=== PATIENT | male | born 1950 | race Caucasian/White ===

== ENCOUNTER 2020-05-09 08:57 | Outpatient (CLI) | payer MEDICARE, BC | END 2020-05-09 08:58 | disposition home or self-care (01) | LOC: DTY/OP 08:57 | PROVIDERS: ATTEND Family Medicine | DX: E11.9 Type 2 diabetes mellitus without complications (principal) | CPT/HCPCS: 97802 ==

== ENCOUNTER 2020-05-10 07:21 | Outpatient (CLI) | payer MEDICARE, BC, OTHER ==
[2020-05-10 11:23] LABS: Hemoglobin 15.8 g/dL (14.0-18.0); Mean Corpuscular HGB CONC 33.2 g/dL (32.0-36.0); Mean Corpuscular Hemoglobin 30.9 pg (27.0-31.0); Mean Corpuscular Volume 93.2 fL (78.0-98.0); Mean Platelet Volume 8.3 fL (7.4-10.4); Platelet Count 251 thou/uL (130-400); RBC Distribution Width 12.8 % (11.5-14.5); Red Blood Cell (RBC) Count 5.11 mill/uL (4.70-6.10); White Blood Cell (WBC) Count 3.8 thou/uL (4.8-10.8)
[2020-05-10 11:27] LABS: INR-International Normal Ratio 0.9; PTT 27.9 sec (22.9-36.1); Prothrombin Time 12.6 sec (12.0-14.7)
[2020-05-10 12:23] LABS: Anion Gap 14 mmol/L (10-20); BUN (Urea Nitrogen) 16 mg/dL (8.4-25.7); Calc. Creatinine Clearance 0 mL/min (70-130); Calcium 8.9 mg/dL (7.8-10.44); Carbon Dioxide 23 mmol/L (23-31); Chloride 105 mmol/L (98-107); Estimated GFR-MDRD 83; Glucose 279 mg/dL (80-115); Potassium 4.1 mmol/L (3.5-5.1); Sodium 138 mmol/L (136-145)
[2020-05-10 12:42] LABS: Bacteria/HPF None Seen HPF (None Seen); Bilirubin Negative (Negative); Blood, Urine Negative (Negative); Clarity Clear (Clear); Glucose, Urine (Dipstick) Greater than 1000 mg/dL (Negative); Ketone, Urine Negative (Negative); Leukocyte Negative Leu/uL (Negative); Nitrite Negative (Negative); Protein, Urine (Dipstick) Negative (Neg-Trace); RBC/HPF 0-3 HPF (0-3); Specific Gravity, Urine 1.009 (1.002-1.036); Squamous Epithelial None Seen HPF (0-3); Urobilinogen Normal mg/dL (Less than 2); pH, Urine 5.5 (5.0-9.0)
[2020-05-10 17:56] LABS: SARS-CoV-2 MS2 Positive; SARS-CoV-2 N Gene Negative; SARS-CoV-2 S Gene Negative; SARS-CoV-2 by NAA Not Detected (NotDetected); SARS-CoV-2 orf1ab Negative
--- NOTE | 2020-05-11 07:04 | EKG ---
Test Reason : Blood Pressure : / mmHG Vent. Rate : 056 BPM Atrial Rate : 056 BPM P-R Int : 142 ms QRS Dur : 106 ms QT Int : 436 ms P-R-T Axes : 063 073 081 degrees QTc Int : 420 ms Sinus bradycardia Septal infarct , age undetermined Abnormal ECG Confirmed by DR. Tyler RIOS ([id number]) on 05/11/2020 7:03:53 AM Referred By: BLAYNE Confirmed By:DR. Tyler RIOS
== END 2020-05-10 07:22 | disposition home or self-care (01) ==
LOC: LABBT 07:21
PROVIDERS: ATTEND Urology
DX: Z01.818 Encounter for other preprocedural examination (principal); Z20.828 Contact with and (suspected) exposure to other viral communicable diseases; N40.1 Benign prostatic hyperplasia with lower urinary tract symptoms; R39.12 Poor urinary stream; N39.41 Urge incontinence
CPT/HCPCS: 80048; 81001; 85027; 85610; 85730; 87086; 93005; U0003; 87635; 93010

== ENCOUNTER 2020-05-13 06:25 | Day surgery (SDC) | payer MEDICARE, BC ==
[2020-05-10 13:56] VITALS: BMI 27.3
[2020-05-13] MEDS ORDERED: B & O ONE (07:49)
[2020-05-13] MEDS ORDERED: Levofloxacin 500 mg/D5W 100 ml Premix Bag ONE (08:27)
--- NOTE | 2020-05-13 09:45 | OP ---
DATE OF PROCEDURE: 05/13/2020 SERVICE: Urology. PREOPERATIVE DIAGNOSIS: Benign prostatic hypertrophy with obstruction. POSTOPERATIVE DIAGNOSIS: Benign prostatic hypertrophy with obstruction. PROCEDURE PERFORMED: UroLift with 7 implants. INDICATIONS FOR PROCEDURE: Mr. Addison is a 69-year-old white male with BPH and urinary complaints. He does not want to be on medication. He wished to undergo UroLift procedure. We discussed risks and benefits, and he has agreed to proceed forward. DESCRIPTION OF PROCEDURE: After identification of armband and verification of consent, the patient was brought back to the operating room, where he underwent total intravenous anesthesia. He was then placed in a dorsal lithotomy position and prepped and draped in usual sterile fashion. After appropriate time-out, a lubricated 21-Congolese rigid cystoscope was introduced per urethra into the bladder. The visual obturator was switched out for the UroLift implant device. The initial implant was placed at the patient's left proximal prostate near the base away from the bladder neck. Lateral compression was achieved in anterior left. The safety was released and then the blue trigger fired to deploy the Nitinol needle. Tension was set with a machado trigger and deployment of the capsular tab. The UroLift device was then advanced forward until the white line could be seen in the keyhole and then the back blue release trigger fired to deploy the urethral end piece. This was then repeated again on the patient's right base of the prostate as well as the left apex and right apex of the prostate. There still appeared to be a bulge on the patient's left lateral prostate, so an additional implant was placed there. At this point, the prostatic channel did appear to be wide open. However, there was significant drooping of the anterior prostate into the prostatic channel. I elected to place anterior implants on the left and right approximately at the mid to base prostate. This resulted in a very nice channel being created from the bladder neck to the verumontanum. Satisfied with the results, the UroLift was removed and an 18-Congolese Marquez catheter was placed with ease into the bladder. 10 mL of sterile water was placed into the balloon. The patient was given B and O suppository, taken out of positioning, awakened, and taken to Day Stay for recovery in stable condition. COMPLICATIONS: None. ESTIMATED BLOOD LOSS: Minimal. RETAINED TUBES AND DRAINS: 18-Congolese Marquez catheter. SPECIMENS: None. IMPLANTS USED: Seven. DISPOSITION: The patient will undergo a void trial. We will plan to discharge him home. Follow up will be approximately 1 to 2 weeks for postop check. Job ID: [id number]
[2020-05-13] MEDS ORDERED: Phenazopyridine HCl 100 MG TAB ONE (10:44)
[2020-05-13] MEDS ORDERED: Oxybutynin 5 MG TAB ONE (10:44)
[2020-05-13] MEDS ORDERED: PROPOFOL 200 MG/20 ML VIAL ONE (10:49)
== END 2020-05-13 11:40 | disposition home or self-care (01) ==
LOC: SDC 06:25
PROVIDERS: ATTEND Urology
PROC: 0T7D8DZ Dilation of Urethra with Intraluminal Device, Via Natural or Artificial Opening Endoscopic (ICD-10-PCS; principal; 2020-05-13)
DX: N40.1 Benign prostatic hyperplasia with lower urinary tract symptoms (principal); N13.8 Other obstructive and reflux uropathy; N39.41 Urge incontinence; R39.12 Poor urinary stream; E11.9 Type 2 diabetes mellitus without complications; J43.9 Emphysema, unspecified; E03.9 Hypothyroidism, unspecified; E78.5 Hyperlipidemia, unspecified; I10 Essential (primary) hypertension; K21.9 Gastro-esophageal reflux disease without esophagitis; Z87.891 Personal history of nicotine dependence; Z79.84 Long term (current) use of oral hypoglycemic drugs; Z79.899 Other long term (current) drug therapy
CPT/HCPCS: 82962; C1889; C9740; 36416; J1956; J2704

== ENCOUNTER 2020-09-12 08:05 | Outpatient (CLI) | payer MEDICARE, BC ==
--- NOTE | 2020-09-12 09:19 | CT ---
EXAM: CT Abdomen W WO Con PROVIDED CLINICAL HISTORY: Renal function tests abnormal. Patient with prior CT pulmonary lung scan suggesting appearance of the left kidney. COMPARISON: CT pulmonary lung scan on 04/19/[address] abdomen on 01/28/2006. FINDINGS: On previous CT pulmonary lung scan, there was a lobulated appearance of the anterolateral aspect supe rior pole left kidney, but this is likely due to an area of lobulation. There is no discrete mass seen in this region. Similar finding was seen on CT abdomen on 01/28/2006. No enhancing renal mas s is visualized. A 0.9 cm hypodense lesion which does not demonstrate enhancement is seen within the midportion right kidney measuring 0.9 cm. Subcentimeter too small to characterize hypodense lesio n is seen in the midportion left kidney. Single 2 mm nonobstructing calculus is seen in the superior pole left kidney and inferior pole right kidney. Multiple calcifications are seen throughout the pancreas also seen on study in 2006 likely sequela of pancreatitis. A 1.1 cm low-density focus is seen in the tail the pancreas which is difficult to further characterize. There is bibasilar atelectasis with calcified granuloma at the right lung base. A subcentimeter too small to characterize low-density focus is seen in lateral segment left hepatic l obe as well as in the posterior segment right hepatic lobe. Lesion in the right left hepatic lobe was seen on prior exam in 2005. Postcholecystectomy changes are present. The spleen and bilateral adrenal glands demonstrate a normal CT appearance. Dense vascular calcification are present in the abdominal aorta and iliac arteries. Colonic diverticulosis is present with small moderate inferolateral seen throughout the colon. Small hiatal hernia is present. Loops of small bowel are normal in caliber. IMPRESSION: 1. Lobulated appearance of the anterolateral aspect superior pole left kidney with a similar appearan ce to a prior study on 01/28/2006. This is likely due to normal lobulation. There is no discrete mass appreciated. 2. Right renal cyst. 3. Incidental pancreatic tail hypodense lesion measuring 1.1 cm. Follow-up evaluation in 6 months to one year is recommended. 4. Nonobstructing bilateral renal calculi. 5. Multiple calcifications seen throughout the pancreas likely sequela of prior pancreatitis. 6. Postcholecystectomy changes. 7. Colonic diverticulosis. 8. Too small to characterize hypodense lesion in each lobe of the liver.
[2020-09-12] MEDS ORDERED: Iopamidol-370 76% 500 ML 1 ML ONE (10:00)
== END 2020-09-12 08:06 | disposition home or self-care (01) ==
LOC: BICCT 08:05
PROVIDERS: ATTEND Family Medicine
DX: R94.4 Abnormal results of kidney function studies (principal); Q63.8 Other specified congenital malformations of kidney; N28.1 Cyst of kidney, acquired; N20.0 Calculus of kidney; K86.89 Other specified diseases of pancreas; K57.30 Diverticulosis of large intestine without perforation or abscess without bleeding; Z90.49 Acquired absence of other specified parts of digestive tract
CPT/HCPCS: 74170; Q9967

== ENCOUNTER 2021-03-14 12:21 | Outpatient (CLI) | payer MEDICARE, BC | END 2021-03-14 12:22 | disposition home or self-care (01) | LOC: BICCT 12:21 | PROVIDERS: ATTEND Family Medicine | DX: R93.5 Abnormal findings on diagnostic imaging of other abdominal regions, including retroperitoneum (principal); K86.89 Other specified diseases of pancreas | CPT/HCPCS: 74160 ==

== ENCOUNTER 2021-05-30 12:42 | Outpatient (CLI) | payer MEDICARE, BC | END 2021-05-30 12:43 | disposition home or self-care (01) | LOC: BICCT 12:42 | PROVIDERS: ATTEND Family Medicine | DX: Z12.2 Encounter for screening for malignant neoplasm of respiratory organs (principal); Z87.891 Personal history of nicotine dependence; R91.8 Other nonspecific abnormal finding of lung field | CPT/HCPCS: 71271 ==

== ENCOUNTER 2021-06-16 10:42 | Outpatient (CLI) | payer MEDICARE, BC ==
[~2021-06-16 10:42] MED LIST: Iopamidol-370 76% 500 ML 1 ML ONE
[2021-06-19 10:15] LABS: Estimated GFR-MDRD - POC Greater than 90
== END 2021-06-16 10:43 | disposition home or self-care (01) ==
LOC: BICCT 10:42
PROVIDERS: ATTEND Family Medicine
DX: R91.8 Other nonspecific abnormal finding of lung field (principal); J44.9 Chronic obstructive pulmonary disease, unspecified; K86.89 Other specified diseases of pancreas; R93.2 Abnormal findings on diagnostic imaging of liver and biliary tract
CPT/HCPCS: 71260; 82565; Q9967

== ENCOUNTER 2021-11-10 11:56 | Outpatient (CLI) | payer MEDICARE, BC | END 2021-11-10 11:57 | disposition home or self-care (01) | LOC: BICCT 11:56 | PROVIDERS: ATTEND Family Medicine | DX: Z12.2 Encounter for screening for malignant neoplasm of respiratory organs (principal); Z87.891 Personal history of nicotine dependence; J84.10 Pulmonary fibrosis, unspecified | CPT/HCPCS: 71271 ==

== ENCOUNTER 2022-05-29 12:41 | Outpatient (CLI) | payer MEDICARE, BC | END 2022-05-29 12:42 | disposition home or self-care (01) | LOC: BICCT 12:41 | PROVIDERS: ATTEND Internal Medicine Critical Care Medicine | DX: J98.4 Other disorders of lung (principal); K86.89 Other specified diseases of pancreas | CPT/HCPCS: 71260; 82565; Q9967 ==

== ENCOUNTER 2023-06-11 08:34 | Outpatient (CLI) | payer MEDICARE, BC ==
[2023-06-11] MEDS ORDERED: Iopamidol 370 76% 100 ML VIAL ONE (11:36)
== END 2023-06-11 08:35 | disposition home or self-care (01) ==
LOC: BICCT 08:34
PROVIDERS: ATTEND Internal Medicine Critical Care Medicine
DX: J98.4 Other disorders of lung (principal); J43.9 Emphysema, unspecified
CPT/HCPCS: 71260; 82565

== ENCOUNTER 2024-05-01 08:23 | Outpatient (CLI) | payer MEDICARE, BC | END 2024-05-01 08:24 | disposition home or self-care (01) | LOC: CT 08:23 | PROVIDERS: ATTEND Internal Medicine Critical Care Medicine | DX: Z12.2 Encounter for screening for malignant neoplasm of respiratory organs (principal); F17.210 Nicotine dependence, cigarettes, uncomplicated; J98.4 Other disorders of lung | CPT/HCPCS: 71271 ==

== ENCOUNTER 2025-06-16 09:33 | Outpatient (CLI) | payer MEDICARE, BC | END 2025-06-16 09:34 | disposition home or self-care (01) | LOC: BICCT 09:33 | PROVIDERS: ATTEND Internal Medicine Critical Care Medicine | DX: Z12.2 Encounter for screening for malignant neoplasm of respiratory organs (principal); J98.4 Other disorders of lung; Z87.891 Personal history of nicotine dependence | CPT/HCPCS: 71271 ==